=== PATIENT | female | born 1945 | race Caucasian/White ===

== ENCOUNTER 2022-10-01 12:33 | Observation (INO) ==
--- NOTE | 2022-10-01 13:38 | Emergency Department Note ---
Impression & Plan SOB (shortness of breath), CHF (congestive heart failure), Anemia, Thrombocytopenia ED Provider Note NAME: REBECCA ROBERTS AGE: 77 SEX: F : 1945 ARRIVES VIA: Ambulance INFORMANT: [Patient][family, ems, nursing] ED PROVIDER(S): [Saji Richardson MD] CHIEF COMPLAINT: Shortness of breath HISTORY OF PRESENT ILLNESS: The patient is a 77-year-old female who presents with around 2 days of shortness of breath. The patient was staying over at a hotel and noticed the shortness of breath in the chestnut tanner. She noticed some swelling of her face. She felt short of breath with exertion. She does complain of body aching. The patient did go to urgent care today and was felt to be quite short of breath. She was given a DuoNeb and sent to this ER by ambulance. A second DuoNeb was given in route. She feels better since the DuoNeb treatments. The patient did take some Benadryl also in the midmorning today before going to urgent care. She thinks the Benadryl helped maybe a little. The patient has had similar reactions in the past from sleeping in hotels. She thinks she has some sort of allergy. The patient denies any sick contacts. She has an albuterol inhaler at home but she has not used this. She has tried her Advair inhaler though. PMHx/PSHx: See Below SOCIAL HISTORY: See Below. PHYSICAL EXAM: GENERAL: Patient is in no acute distress. HEENT: No acute trauma, normocephalic atraumatic, mucous membranes moist, no nasal congestion. NECK: No stridor, no adenopathy, no meningismus, trachea is midline. LUNGS: No obvious respiratory distress but the breath sounds are diminished bilaterally with some bilateral basilar crackles. Breath sounds equal bilaterally. HEART: Subtle systolic murmur with a occasional extra beat. Normal rate. ABDOMEN: Soft, nontender, bowel sounds positive, no peritonitis. EXTREMITIES: No cyanosis, mild bilateral pedal edema, full range of motion of all the joints without pain or difficulty, no signs for acute trauma. NEUROLOGIC: Oriented x 3, no acute motor or sensory deficits, no focal weakness. SKIN: No rash, no jaundice, no diaphoresis. DIFFERENTIAL DIAGNOSIS: Reactive airway disease, environmental allergy, RSV, influenza, COVID-19, pneumonia, pneumothorax, COPD, CHF, infection, cardiac ischemia, anemia, pulmonary embolism, bronchitis, as well as other pathologies. EMERGENCY DEPARTMENT COURSE/PROCEDURES: Prior/Outside records reviewed: None ECG: Indication was shortness of breath. The ECG shows an AV pacemaker with a [place] beat. The rate is 85. No obvious ST elevation, the QTC is 542. Continuous Cardiac Monitoring: An order was placed for continuous cardiac monitoring. The monitor shows a rate of 71 with an AV pacemaker. MEDICAL DECISION MAKING: There is no leukocytosis, a mild anemia was seen. Platelet count was slightly low at 102. No coagulopathy. Creatinine is slightly high at 1.48, no electrolyte abnormality in need of emergent correction. No concerning liver enzyme elevation. ECG showed an AV pacemaker, no obvious ischemia. Cardiac enzyme testing x1 was slightly elevated. This elevation could be from mismatch given her dyspnea or potentially cardiac injury. BNP was elevated consistent with CHF and fluid overload. Chest x-ray does show some mild CHF. On exam, patient did have crackles consistent with fluid overload. Urinalysis showed contamination, no infection. COVID, influenza and RSV test were negative. The patient received IV Zofran for some nausea that she developed here in the ED. She was given IV Lasix to start her diuresis. I do think the patient deserves a hospital stay. She has a complicated past history. She presents fluid overloaded and was felt to be quite dyspneic at the outpatient center. She required ambulance transport to our hospital. She is from outside of [place] and visiting the area and does not have any ability to follow-up locally. I did speak with the patient and her , I spoke with case management, the on-call hospitalist was consulted. DISPOSITION: Patient's presentation warranted admission. Past Med/Surg History Medical History CAD (coronary artery disease) COPD (chronic obstructive pulmonary disease) Diabetes Heart failure Hyperlipidemia Hypertension Surgical History S/P triple vessel bypass Social History Smoking Status: Never smoker Hx Alcohol Use: Yes Alcohol type: wine Hx Substance Use: No Preferred Language: Swedish Communication Ability: Effective Refrigeration Systems Installer Required: No Beliefs That Will Affect Care: None Current Living Situation: Spouse Current Living Situation Comment: Other Information That Helps Us Care for You: No Feels Safe at Home: Yes Safety Concerns: Feels Safe At This Time Assistive Devices: Glasses, Hearing Aid - Bilateral and Walker Allergies Allergies Allergy/AdvReac Type Severity Reaction Status Date / Time ciprofloxacin [From Cipro] Allergy Unknown Verified 10/01/22 16:43 dextrose 5 % in water Allergy Unknown Verified 10/01/22 16:43 [From Zyvox] doxycycline Allergy Unknown Verified 10/01/22 16:43 linezolid [From Zyvox] Allergy Unknown Verified 10/01/22 16:43 polymyxin B Allergy Unknown Verified 10/01/22 16:43 sulfamethoxazole Allergy Unknown Verified 10/01/22 16:43 [From Bactrim] trimethoprim [From Bactrim] Allergy Unknown Verified 10/01/22 16:43 Home Meds Home Medications Medication Instructions Recorded Confirmed albuterol sulfate 90 mcg/actuation 2 puff inhalation Q4 10/01/22 10/01/22 aerosol inhaler aspirin 81 mg tablet,delayed 81 mg PO DAILY 10/01/22 10/01/22 release carvedilol 3.125 mg tablet 3.125 mg PO BID 10/01/22 10/01/22 fluticasone 500 mcg-salmeterol 50 1 inh inhalation BID 10/01/22 10/01/22 mcg/dose blistr powdr for inhalation (Advair Diskus) fluticasone propionate 50 2 spray intranasal BID 10/01/22 10/01/22 mcg/actuation nasal spray,suspension insulin glargine 100 unit/mL (3 42 unit subcut QAM 10/01/22 10/01/22 mL) subcutaneous pen (Lantus Solostar U-100 Insulin) insulin lispro 100 unit/mL 0 unit subcut TIDM 10/01/22 10/01/22 subcutaneous pen (Humalog KwikPen (U-100) Insulin) metoprolol succinate 25 mg 25 mg PO DAILY 10/01/22 10/01/22 tablet,extended release 24 hr pantoprazole 40 mg tablet,delayed 40 mg PO DAILY 10/01/22 10/01/22 release pregabalin 50 mg capsule 50 mg PO BID 10/01/22 10/01/22 rosuvastatin 40 mg tablet 40 mg PO DAILY 10/01/22 10/01/22 sacubitril 24 mg-valsartan 26 mg 0.25 tab PO BID 10/01/22 10/01/22 tablet (Entresto) Results & Data (ED) Vital Signs Vital Signs - 24 hr 10/01/22 12:21 10/01/22 12:36 10/01/22 12:36 Temperature 36.8 C Temperature Source Oral Pulse Rate 71 Pulse Rhythm Regular Pulse Strength Normal Respiratory Rate 24 Respiratory Effort / Characteristics Non-Labored Respiratory Depth Normal Normal Respiratory Pattern Regular Blood Pressure 173/76 H Blood Pressure Mean 108 Pulse Oximetry 94 93 Oxygen Delivery Method Room Air Room Air Room Air Oxygen Flow Rate 0 Sepsis Recent Fever Within 48 Hours No Sepsis New/Unexplained Change in Mental Status No Sepsis Action Taken by Nursing No Action Required Home Medications Current Medication List: was personally reviewed by me Laboratory Data Attestation: I reviewed the patient's lab results. Result diagrams: 10/01/22 14:08 10/01/22 14:08 Lab Results 10/01/22 10/01/22 10/01/22 Range/Units 13:55 13:58 14:08 WBC 8.18 (4.8-10.8) K/ul RBC 3.80 L (3.93-5.22) M/uL Hgb 11.5 L (12.0-16.0) g/dl Hct 35.7 (34.1-44.9) % MCV 93.9 (80.0-100.0) fL MCH 30.3 (25.0-34.0) pg MCHC 32.2 (32.0-36.0) g/dL RDW Std Deviation 53.1 H (36.4-46.3) fL RDW Coeff of Michael 15.3 H (11.5-14.5) % Plt Count 102 L (130-400) K/uL MPV 11.1 (9.4-12.3) fL Immature Gran % (Auto) 0.2 % Neut % (Auto) 73.5 % Lymph % (Auto) 12.7 % [place] % (Auto) 13.1 % Eos % (Auto) 0.4 % Baso % (Auto) 0.1 % Neut # (Auto) 6.01 (1.4-6.5) K/uL Lymph # (Auto) 1.04 L (1.2-3.4) K/uL [place] # (Auto) 1.07 H (0.24-0.82) K/uL Eos # (Auto) 0.03 (0-0.50) K/uL Baso # (Auto) 0.01 (0-0.2) K/uL Immature Gran # (Auto) 0.02 (0.00-0.02) K/uL PT (9.0-12.0) Seconds INR (0.9-1.1) APTT (21.0-31.0) Seconds PTT Ratio Sodium (136-145) mmol/L Potassium (3.5-5.1) mmol/L Chloride (98-107) mmol/L Carbon Dioxide (21-32) mmol/L Anion Gap (3-11) BUN (6-23) mg/dl Creatinine (0.6-1.2) mg/dl Est Cr Clr Drug Dosing ml/min Est GFR ( Amer) ml/min Est GFR (Non-Af Amer) ml/min BUN/Creatinine Ratio (10-20) Glucose (70-99(Fasting)) mg/dl Calcium (8.5-10.1) mg/dl Magnesium (1.7-2.4) mg/dl Total Bilirubin (0.2-1.0) mg/dl AST (13-39) U/L ALT (7-52) U/L Alkaline Phosphatase (34-104) U/L Troponin I High Sens (0-14) pg/ml B-Natriuretic Peptide (0-100) pg/ml Total Protein (6.0-8.3) gm/dl Albumin (3.4-5.0) gm/dl Globulin (2.5-4.0) gm/dl Albumin/Globulin Ratio (0.9-2) Urine Color Yellow Urine Appearance Clear (Clear) Urine pH 5.5 (4.5-7.5) Ur Specific [place] 1.020 (1.000-1.030) Urine Protein 2+ H (Negative) Urine Glucose (UA) Negative (Negative) Urine Ketones Negative (Negative) Urine Blood Trace H (Negative) Urine Nitrite Negative (Negative) Urine Bilirubin Negative (Negative) Urine Urobilinogen Negative (Negative) Ur Leukocyte Esterase Trace H (Negative) Urine WBC (Auto) 10-30 H (0-5) /hpf Urine RBC (Auto) 0-4 (0-4) /hpf U Hyaline Cast (Auto) 1-5 (0-5) /lpf U Epithel Cells (Auto) 10-20 H (0-5) /lpf Urine Bacteria (Auto) Negative (Negative) SARS-CoV-2 (PCR) NEGATIVE (Negative) Influenza Type A (PCR) Negative (Neg) Influenza Type B (PCR) Negative (Neg) RSV (RT-PCR) Negative (Neg) 10/01/22 10/01/22 10/01/22 Range/Units 14:08 14:08 14:08 WBC (4.8-10.8) K/ul RBC (3.93-5.22) M/uL Hgb (12.0-16.0) g/dl Hct (34.1-44.9) % MCV (80.0-100.0) fL MCH (25.0-34.0) pg MCHC (32.0-36.0) g/dL RDW Std Deviation (36.4-46.3) fL RDW Coeff of Michael (11.5-14.5) % Plt Count (130-400) K/uL MPV (9.4-12.3) fL Immature Gran % (Auto) % Neut % (Auto) % Lymph % (Auto) % [place] % (Auto) % Eos % (Auto) % Baso % (Auto) % Neut # (Auto) (1.4-6.5) K/uL Lymph # (Auto) (1.2-3.4) K/uL [place] # (Auto) (0.24-0.82) K/uL Eos # (Auto) (0-0.50) K/uL Baso # (Auto) (0-0.2) K/uL Immature Gran # (Auto) (0.00-0.02) K/uL PT 11.4 (9.0-12.0) Seconds INR 1.1 (0.9-1.1) APTT 23.7 (21.0-31.0) Seconds PTT Ratio 0.9 Sodium 139 (136-145) mmol/L Potassium 4.3 (3.5-5.1) mmol/L Chloride 105 (98-107) mmol/L Carbon Dioxide 27 (21-32) mmol/L Anion Gap 7 (3-11) BUN 20 (6-23) mg/dl Creatinine 1.48 H (0.6-1.2) mg/dl Est Cr Clr Drug Dosing 43.2 ml/min Est GFR ( Amer) 39.7 ml/min Est GFR (Non-Af Amer) 34.3 ml/min BUN/Creatinine Ratio 13.5 (10-20) Glucose 156 H (70-99(Fasting)) mg/dl Calcium 8.9 (8.5-10.1) mg/dl Magnesium 2.0 (1.7-2.4) mg/dl Total Bilirubin 0.8 (0.2-1.0) mg/dl AST 14 (13-39) U/L ALT 10 (7-52) U/L Alkaline Phosphatase 65 (34-104) U/L Troponin I High Sens 25.3 H (0-14) pg/ml B-Natriuretic Peptide 892 H (0-100) pg/ml Total Protein 7.0 (6.0-8.3) gm/dl Albumin 3.5 (3.4-5.0) gm/dl Globulin 3.5 (2.5-4.0) gm/dl Albumin/Globulin Ratio 1.0 (0.9-2) Urine Color Urine Appearance (Clear) Urine pH (4.5-7.5) Ur Specific [place] (1.000-1.030) Urine Protein (Negative) Urine Glucose (UA) (Negative) Urine Ketones (Negative) Urine Blood (Negative) Urine Nitrite (Negative) Urine Bilirubin (Negative) Urine Urobilinogen (Negative) Ur Leukocyte Esterase (Negative) Urine WBC (Auto) (0-5) /hpf Urine RBC (Auto) (0-4) /hpf U Hyaline Cast (Auto) (0-5) /lpf U Epithel Cells (Auto) (0-5) /lpf Urine Bacteria (Auto) (Negative) SARS-CoV-2 (PCR) (Negative) Influenza Type A (PCR) (Neg) Influenza Type B (PCR) (Neg) RSV (RT-PCR) (Neg) Administered Medications Acetaminophen (Acetaminophen 325 Mg Tab) 650 mg PO Q4H PRN PRN Reason: Pain or Fever Stop: 10/31/22 17:15 Last Admin: 10/01/22 19:06 Dose: 650 mg Documented By: [id number] Enoxaparin Sodium (Enoxaparin Inj 40 Mg/0.4 Ml Syr) 40 mg SQ Q24H KYLAH Stop: 10/31/22 17:29 Last Admin: 10/01/22 18:10 Dose: 40 mg Documented By: RACHEL Insulin Aspart (Insulin Aspart Per Unit) 0 units SC ACHS KYLAH Stop: 10/31/22 17:15 Last Admin: 10/01/22 18:09 Dose: 2 units Documented By: RACHEL Co-signed By: [facility] Discontinued Medications Furosemide (Furosemide 40 Mg/4 Ml Vial) 40 mg IV ONE ONE Stop: 10/01/22 14:52 Last Admin: 10/01/22 15:00 Dose: 40 mg Documented By: MATTHEW Ondansetron HCl (Ondansetron Inj 2 Mg/Ml 2 Ml Vial) 4 mg IV NOW STA Stop: 10/01/22 14:05 Last Admin: 10/01/22 14:07 Dose: 4 mg Documented By: MATTHEW Imaging Data Radiologist's Impression: Chest X-Ray 10/01/22 13:27 SINGLE VIEW CHEST CLINICAL HISTORY: Dyspnea FINDINGS: An AP, portable, upright chest radiograph is obtained. No prior studies are available for comparison at the time of dictation. The examination is degraded by portable technique, apical lordotic positioning, and patient rotation. The patient is status post midline sternotomy. A cardiac AICD is in place and partially obscures left apex. The heart is enlarged. There is prominence of the pulmonary vasculature. There is elevation the right hemidiaphragm and bibasilar atelectasis. Suspect trace pleural effusions. No pneumothorax is seen. The skeletal structures are osteopenic. The bony thorax is grossly intact. IMPRESSION: 1. Cardiomegaly and AICD. There is prominence of pulmonary vasculature. Correlate clinically for evidence of mild congestive failure. 2. Suspect small pleural effusions. ACT 112: Negative or not required by law. Electronically signed by: Saji Bynum M.D. 10/01/2022 1:50 PM Discharge Plan Visit Data Chief Complaint: Shortness of Breath/Dyspnea Stated Complaint: SOB ED Provider: Saji Richardson Discharge Problem: SOB (shortness of breath), CHF (congestive heart failure), Anemia, Thrombocytopenia Patient Disposition: Admitted As Inpatient Condition: Fair Discharge Instructions Interventions: ED Discharge Assessment Last Done: 10/01/22 16:17
--- NOTE | 2022-10-01 13:51 | XRay Report ---
SINGLE VIEW CHEST CLINICAL HISTORY: Dyspnea FINDINGS: An AP, portable, upright chest radiograph is obtained. No prior studies are available for c omparison at the time of dictation. The examination is degraded by portable technique, apical lordoti c positioning, and patient rotation. The patient is status post midline sternotomy. A cardiac AICD i s in place and partially obscures left apex. The heart is enlarged. There is prominence of the pulmon shefali vasculature. There is elevation the right hemidiaphragm and bibasilar atelectasis. Suspect trace pleural effusions. No pneumothorax is seen. The skeletal structures are osteopenic. The bony thorax i s grossly intact. IMPRESSION: 1. Cardiomegaly and AICD. There is prominence of pulmonary vasculature. Correlate clinically for evid ence of mild congestive failure. 2. Suspect small pleural effusions. ACT 112: Negative or not required by law. Electronically signed by: Saji Bynum M.D. 10/01/2022 1:50 PM
[2022-10-01] MEDS ORDERED: ONDANSETRON INJ 2 MG/ML 2 ML VIAL IV STA (14:04)
[2022-10-01 14:12] LABS: Appearance Urine Clear (Clear); Bacteria Urine Automated Negative (Negative); Bilirubin Urine Negative (Negative); Blood Urine Trace (Negative); Color Urine Yellow; Glucose Urine UA Negative (Negative); Ketones Urine Negative (Negative); Leukocyte Esterase Urine Trace (Negative); Nitrite Urine Negative (Negative); Protein Urine 2+ (Negative); RBC Urine Automated 0-4 /hpf (0-4); Urobilinogen Urine Negative (Negative); pH Urine 5.5 (4.5-7.5)
[2022-10-01 14:17] LABS: Basophils # (auto) 0.01 K/uL (0-0.2); Basophils % (auto) 0.1 %; Eosinophils # (auto) 0.03 K/uL (0-0.50); Eosinophils % (auto) 0.4 %; Hematocrit (blood only) 35.7 % (34.1-44.9); Hemoglobin 11.5 g/dl (12.0-16.0); Immature Granulocytes # (auto) 0.02 K/uL (0.00-0.02); Immature Granulocytes % (auto) 0.2 %; Lymphocytes # (auto) 1.04 K/uL (1.2-3.4); Lymphocytes % (auto) 12.7 %; Mean Corpuscular Hemoglobin 30.3 pg (25.0-34.0); Mean Corpuscular Hgb Conc 32.2 g/dL (32.0-36.0); Mean Corpuscular Volume 93.9 fL (80.0-100.0); Mean Platelet Volume 11.1 fL (9.4-12.3); Monocytes # (auto) 1.07 K/uL (0.24-0.82); Monocytes % (auto) 13.1 %; Neutrophils # (auto) 6.01 K/uL (1.4-6.5); Neutrophils % (auto) 73.5 %; Platelet Count 102 K/uL (130-400); RDW Coefficient of Variation 15.3 % (11.5-14.5); RDW Standard Deviation 53.1 fL (36.4-46.3); White Blood Count 8.18 K/ul (4.8-10.8)
[2022-10-01 14:31] LABS: INR 1.1 (0.9-1.1); Partial Thromboplastin Ratio 0.9; Partial Thromboplastin Time 23.7 Seconds (21.0-31.0); Prothrombin Time 11.4 Seconds (9.0-12.0)
[2022-10-01 14:43] LABS: Albumin Level 3.5 gm/dl (3.4-5.0); BUN Creatinine Ratio 13.5 (10-20); Bilirubin,Total 0.8 mg/dl (0.2-1.0); Calcium 8.9 mg/dl (8.5-10.1); Creatinine Clr Calc Pharmacy 43.2 ml/min; Est GFR (African American) 39.7 ml/min; Est GFR (Non-African American) 34.3 ml/min; Globulin 3.5 gm/dl (2.5-4.0); Potassium 4.3 mmol/L (3.5-5.1)
[2022-10-01 14:45] LABS: Influenza A virus by PCR Negative (Neg); Influenza B virus by PCR Negative (Neg); RSV by PCR Negative (Neg); SARS CoV2 RNA(COVID-19) Ceph NEGATIVE (Negative)
[2022-10-01 14:46] LABS: Troponin I High Sensitivity 25.3 pg/ml (0-14)
[2022-10-01] MEDS ORDERED: FUROSEMIDE 40 MG/4 ML VIAL IV ONE (14:51)
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
[2022-10-01] MEDS ORDERED: DEXTROSE 50% 50 ML SYRINGE IV PRN (17:16)
[2022-10-01] MEDS ORDERED: ALUMINUM/MAGNESIUM SUSP 30 ML UDC PO PRN (17:16)
[2022-10-01] MEDS ORDERED: GLUCAGON FOR INJ 1 MG VIAL SQ PRN (17:16)
[2022-10-01] MEDS ORDERED: GLUCOSE 10 TAB/TUBE PO PRN (17:16)
[2022-10-01] MEDS ORDERED: CARBOHYDRATES FOR HYPOGLYCEMIA PO PRN (17:16)
[2022-10-01] MEDS ORDERED: POLYETHYLENE (MIRALAX) 17 GM PACK PO PRN (17:16)
[2022-10-01] MEDS ORDERED: GLUCOSE 40% GEL 15 GM TUBE PO PRN (17:16)
[2022-10-01] MEDS: INSULIN ASPART PER UNIT SC SCH ×2 (18:09→20:13)
[2022-10-01] MEDS: ENOXAPARIN INJ 40 MG/0.4 ML SYR SQ SCH (18:10)
[2022-10-01] MEDS: ACETAMINOPHEN 325 MG TAB PO PRN (19:06)
--- NOTE | 2022-10-01 19:08 | Electrocardiogram Report ---
Test Reason : Blood Pressure : / mmHG Vent. Rate : 085 BPM Atrial Rate : 085 BPM P-R Int : 170 ms QRS Dur : 170 ms QT Int : 456 ms P-R-T Axes : 000 108 097 degrees QTc Int : 542 ms AV dual-paced rhythm with occasional Premature ventricular complexes Abnormal ECG No previous ECGs available Confirmed by Ambrocio Wyatt ([id number]) on 10/01/2022 7:07:46 PM Referred By: ED Confirmed By:Praneeth Wyatt
[2022-10-01] MEDS ORDERED: ALBUTEROL HFA 8 GM INHALER INH SCH (20:00)
[2022-10-01] MEDS: PREGABALIN 50 MG CAP PO SCH (20:10)
[2022-10-01] MEDS: VALSARTAN/SACUBITRIL 26/24MG TAB PO SCH (20:10)
[2022-10-01] MEDS: FLUTICASONE PROPIONATE NA SPR 16 GM BTL SCH (20:11)
[2022-10-01] MEDS: carvediloL 3.125 MG TAB PO SCH (20:13)
[2022-10-01] MEDS ORDERED: ALBUTEROL HFA 8 GM INHALER INH PRN (21:30)
[2022-10-02] MEDS: ACETAMINOPHEN 325 MG TAB PO PRN ×3 (03:14→21:31)
[2022-10-02] MEDS ORDERED: HYDROmorphone INJ 0.5 MG/0.5 ML SYR IV STA (03:30)
[2022-10-02 07:13] LABS: Estimated Average Glucose 171 mg/dl; Hemoglobin A1C 7.6 % (4.5-5.6)
[2022-10-02] MEDS ORDERED: FUROSEMIDE INJ 20 MG/2 ML VIAL IV SCH (09:00)
[2022-10-02] MEDS ORDERED: ROSUVASTATIN CALCIUM 20 MG TAB PO SCH (09:00)
[2022-10-02] MEDS ORDERED: METOPROLOL SUCC 25MG EXT REL TAB PO SCH (09:00)
[2022-10-02] MEDS: PANTOprazole 40 MG TAB PO SCH (09:32)
[2022-10-02] MEDS: FLUTICASONE PROPIONATE NA SPR 16 GM BTL SCH ×2 (09:32→21:31)
[2022-10-02] MEDS: ASPIRIN 81 MG ECTAB PO SCH (09:32)
[2022-10-02] MEDS: carvediloL 3.125 MG TAB PO SCH ×2 (09:32→21:31)
[2022-10-02] MEDS: PREGABALIN 50 MG CAP PO SCH ×2 (09:32→21:31)
[2022-10-02] MEDS: VALSARTAN/SACUBITRIL 26/24MG TAB PO SCH (09:33)
[2022-10-02] MEDS: LANTUS PER UNIT CHARGE SQ SCH (09:36)
[2022-10-02] MEDS: INSULIN ASPART PER UNIT SC SCH ×4 (09:39→21:24)
[2022-10-02 10:26] LABS: Basophils # (auto) 0.02 K/uL (0-0.2); Basophils % (auto) 0.3 %; Eosinophils # (auto) 0.11 K/uL (0-0.50); Eosinophils % (auto) 1.5 %; Hematocrit (blood only) 32.9 % (34.1-44.9); Hemoglobin 10.2 g/dl (12.0-16.0); Immature Granulocytes # (auto) 0.02 K/uL (0.00-0.02); Immature Granulocytes % (auto) 0.3 %; Lymphocytes % (auto) 17.3 %; Mean Corpuscular Hemoglobin 29.4 pg (25.0-34.0); Mean Corpuscular Volume 94.8 fL (80.0-100.0); Mean Platelet Volume 11.3 fL (9.4-12.3); Monocytes # (auto) 1.39 K/uL (0.24-0.82); Monocytes % (auto) 18.5 %; Neutrophils # (auto) 4.68 K/uL (1.4-6.5); Neutrophils % (auto) 62.1 %; Platelet Count 114 K/uL (130-400); RDW Coefficient of Variation 15.5 % (11.5-14.5); RDW Standard Deviation 53.8 fL (36.4-46.3); Red Blood Count 3.47 M/uL (3.93-5.22); White Blood Count 7.52 K/ul (4.8-10.8)
[2022-10-02 10:45] LABS: BUN Creatinine Ratio 13.9 (10-20); C Reactive Protein 12.69 mg/dl (0-0.5); Calcium 8.4 mg/dl (8.5-10.1); Creatinine Clr Calc Pharmacy 31.3 ml/min; Est GFR (African American) 27.4 ml/min; Est GFR (Non-African American) 23.7 ml/min; Potassium 4.2 mmol/L (3.5-5.1)
[2022-10-02] MEDS: ONDANSETRON INJ 2 MG/ML 2 ML VIAL IV PRN (11:19)
--- NOTE | 2022-10-02 11:36 | XCELERA ---
[id number]
[2022-10-02] MEDS: FLUTICASONE/VILANTEROL 100/25MCG 14 PUFFS/INHALER INH SCH (12:45)
[2022-10-02] MEDS: cefTRIAXone SODIUM 2,000 MG in DEXTROSE 5% 50 ML IV SCH (12:45)
--- NOTE | 2022-10-02 12:47 | Electrocardiogram Report ---
Test Reason : Blood Pressure : / mmHG Vent. Rate : 062 BPM Atrial Rate : 061 BPM P-R Int : 176 ms QRS Dur : 166 ms QT Int : 526 ms P-R-T Axes : 056 100 094 degrees QTc Int : 533 ms AV dual-paced rhythm Abnormal ECG When compared with ECG of 01-OCT-2022 12:38, Premature ventricular complexes are no longer Present Vent. rate has decreased BY 23 BPM Confirmed by Iraj Louis ([id number]) on 10/02/2022 12:47:14 PM Referred By: REFERRED SELF Confirmed By:Iraj Louis
--- NOTE | 2022-10-02 13:14 | Hospitalist Progress Note ---
Date of Service October 02, 2022 Assessment & Plan (1) GELA (acute kidney injury): Plan: Baseline Cr and CrCl are unknown. Presented with Cr 1.48. Following 1 dose of IV lasix yesterday it is now 2. HOLD FURTHER Lasix and Entresto. Repeat BMP am. If Creatinine worsens consider CT or renal u/s to r/o obstruction. (2) CAD (coronary artery disease): Plan: History of triple bypass surgery 1.5 years ago w/ [facility] and AICD placement after that (due to Vtach event??). No ischemic symptoms. Mild trop elevation likely myocardial demand ischemia. Cont BB (coreg; stop metoprolol). Cont statin. (3) Diabetes: Plan: Hba1c 7.6% cont lantus cont novolog (4) Hypertension: Plan: hold diuretics and Entresto due to #1 Cont coreg. (5) Hyperlipidemia: Plan: Continue statin. (6) Cellulitis and abscess of right leg: Plan: blood cultures obtained, and started on rocephin + daptomycin for such. her illness that she developed on 09/30 could be 2nd to the cellulitis or a respiratory illness - or both. follow cultures and serial exams. wound care consult for the RLE barrett ulcer. (7) Wheezing: Plan: 2nd to COPD? 2nd to respiratory viral process? 2nd to pulm edema? suspect infectious process thus obtain [employer] resp panel today. repeat cxr - r/o ongoing edema causing the wheezing (but clinically does not appear volume overloaded). patient is very short of breath with exertion - may need CT chest if cxr is not helpful/revealing. (8) COPD (chronic obstructive pulmonary disease): Plan: cont home inhalers (9) Chronic systolic CHF (congestive heart failure): Plan: previous EF <30%?? then improved to 45% per . now 50-55% on echo today. Creatinine worse with diuresis - hold further lasix. cont coreg. (10) ICD (implantable cardioverter-defibrillator) in place: Plan DVT proph - lovenox Nausea - 2nd to cellulitis? respiratory illness? other? treat symptoms, check KUB x-rays updated at bedside Admission and Anticipated Discharge Date Admission Date: October 01, 2022 Subjective patient reports waking up on 09/30/22 in the hotel in which she & her are staying in (they were visiting family for the holidays - they reside in [place]) with diffuse myalgias, fatigue, chills, and feeling poorly appetite since then has been poor attributes symptoms to "allergic reaction" to the pillows felt that her face was "swollen" did not seek medical attention for the ?allergic rxn since 09/30 has had dyspnea with minimal activity reports that she saw her boat wrapper not too long ago in [place] and was told her EF on echo was "45" she has continued with nausea since admission appetite poor also c/o sores on legs worse on right barrett tele overnight stable Review of Systems Review of Systems: gen - fever overnight cv - no cp pulm - minimal cough despite the dyspnea GI - despite nausea no abd pain - no dysuria or foul-smelling urine Physical Exam Physical Exam: gen - obese, NAD neck - no JVD mouth - MMM heart - RRR, s1 s2 lungs - poor airation, faint end-exp wheezes, no rales abd - soft NT ND BS+ ext - 1+ edema b/l, pulses 2+ b/l skin - ?early cellulitis of right barrett with large irregularly shaped ulceration (shallow) on the right barrett; minimal weeping serous fluid; scattered abrasions on both shins - a little worse on right psych - a/o x 3 Results & Data Results & [facility] ([facility]) Vital Signs (Past 12 Hours) Vital Signs Temp Pulse Resp BP BP Pulse Ox O2 Del Method 10/02/22 12:00 36.6 C 60 18 107/44 L 94 Nasal Cannula 10/02/22 08:00 36.7 C 61 20 103/45 L 96 Nasal Cannula 10/02/22 03:16 37.4 C 70 18 121/66 95 Nasal Cannula 10/02/22 02:39 37.0 C 67 18 104/55 L 92 Nasal Cannula O2 Flow Rate 10/02/22 12:00 2 10/02/22 08:00 2 10/02/22 03:16 2 10/02/22 02:39 2 Laboratory Results Laboratory Results - last 24 hr 10/01/22 10/01/22 10/01/22 13:55 13:58 14:08 WBC 8.18 RBC 3.80 L Hgb 11.5 L Hct 35.7 MCV 93.9 MCH 30.3 MCHC 32.2 RDW Std Deviation 53.1 H RDW Coeff of Michael 15.3 H Plt Count 102 L MPV 11.1 Immature Gran % (Auto) 0.2 Neut % (Auto) 73.5 Lymph % (Auto) 12.7 [place] % (Auto) 13.1 Eos % (Auto) 0.4 Baso % (Auto) 0.1 Neut # (Auto) 6.01 Lymph # (Auto) 1.04 L [place] # (Auto) 1.07 H Eos # (Auto) 0.03 Baso # (Auto) 0.01 Immature Gran # (Auto) 0.02 PT INR APTT PTT Ratio Sodium Potassium Chloride Carbon Dioxide Anion Gap BUN Creatinine Est Cr Clr Drug Dosing Est GFR ( Amer) Est GFR (Non-Af Amer) BUN/Creatinine Ratio Glucose POC Glucose Estimat Average Glucose Hemoglobin A1c Calcium Magnesium Total Bilirubin AST ALT Alkaline Phosphatase Troponin I High Sens C-Reactive Protein B-Natriuretic Peptide Total Protein Albumin Globulin Albumin/Globulin Ratio Procalcitonin Urine Color Yellow Urine Appearance Clear Urine pH 5.5 Ur Specific [place] 1.020 Urine Protein 2+ H Urine Glucose (UA) Negative Urine Ketones Negative Urine Blood Trace H Urine Nitrite Negative Urine Bilirubin Negative Urine Urobilinogen Negative Ur Leukocyte Esterase Trace H Urine WBC (Auto) 10-30 H Urine RBC (Auto) 0-4 U Hyaline Cast (Auto) 1-5 U Epithel Cells (Auto) 10-20 H Urine Bacteria (Auto) Negative SARS-CoV-2 (PCR) NEGATIVE Hepatitis C Ab (EIA) Hep C Ab Signal/Cutoff Influenza Type A (PCR) Negative Influenza Type B (PCR) Negative RSV (RT-PCR) Negative 10/01/22 10/01/22 10/01/22 14:08 14:08 14:08 WBC RBC Hgb Hct MCV MCH MCHC RDW Std Deviation RDW Coeff of Michael Plt Count MPV Immature Gran % (Auto) Neut % (Auto) Lymph % (Auto) [place] % (Auto) Eos % (Auto) Baso % (Auto) Neut # (Auto) Lymph # (Auto) [place] # (Auto) Eos # (Auto) Baso # (Auto) Immature Gran # (Auto) PT 11.4 INR 1.1 APTT 23.7 PTT Ratio 0.9 Sodium 139 Potassium 4.3 Chloride 105 Carbon Dioxide 27 Anion Gap 7 BUN 20 Creatinine 1.48 H Est Cr Clr Drug Dosing 43.2 Est GFR ( Amer) 39.7 Est GFR (Non-Af Amer) 34.3 BUN/Creatinine Ratio 13.5 Glucose 156 H POC Glucose Estimat Average Glucose Hemoglobin A1c Calcium 8.9 Magnesium 2.0 Total Bilirubin 0.8 AST 14 ALT 10 Alkaline Phosphatase 65 Troponin I High Sens 25.3 H C-Reactive Protein B-Natriuretic Peptide 892 H Total Protein 7.0 Albumin 3.5 Globulin 3.5 Albumin/Globulin Ratio 1.0 Procalcitonin Urine Color Urine Appearance Urine pH Ur Specific [place] Urine Protein Urine Glucose (UA) Urine Ketones Urine Blood Urine Nitrite Urine Bilirubin Urine Urobilinogen Ur Leukocyte Esterase Urine WBC (Auto) Urine RBC (Auto) U Hyaline Cast (Auto) U Epithel Cells (Auto) Urine Bacteria (Auto) SARS-CoV-2 (PCR) Hepatitis C Ab (EIA) Hep C Ab Signal/Cutoff Influenza Type A (PCR) Influenza Type B (PCR) RSV (RT-PCR) 10/01/22 10/01/22 10/02/22 17:00 20:02 04:04 WBC RBC Hgb Hct MCV MCH MCHC RDW Std Deviation RDW Coeff of Michael Plt Count MPV Immature Gran % (Auto) Neut % (Auto) Lymph % (Auto) [place] % (Auto) Eos % (Auto) Baso % (Auto) Neut # (Auto) Lymph # (Auto) [place] # (Auto) Eos # (Auto) Baso # (Auto) Immature Gran # (Auto) PT INR APTT PTT Ratio Sodium Potassium Chloride Carbon Dioxide Anion Gap BUN Creatinine Est Cr Clr Drug Dosing Est GFR ( Amer) Est GFR (Non-Af Amer) BUN/Creatinine Ratio Glucose POC Glucose 185 H 205 H Estimat Average Glucose 171 Hemoglobin A1c 7.6 H Calcium Magnesium Total Bilirubin AST ALT Alkaline Phosphatase Troponin I High Sens C-Reactive Protein B-Natriuretic Peptide Total Protein Albumin Globulin Albumin/Globulin Ratio Procalcitonin Urine Color Urine Appearance Urine pH Ur Specific [place] Urine Protein Urine Glucose (UA) Urine Ketones Urine Blood Urine Nitrite Urine Bilirubin Urine Urobilinogen Ur Leukocyte Esterase Urine WBC (Auto) Urine RBC (Auto) U Hyaline Cast (Auto) U Epithel Cells (Auto) Urine Bacteria (Auto) SARS-CoV-2 (PCR) Hepatitis C Ab (EIA) Hep C Ab Signal/Cutoff Influenza Type A (PCR) Influenza Type B (PCR) RSV (RT-PCR) 10/02/22 10/02/22 10/02/22 04:04 04:04 07:40 WBC RBC Hgb Hct MCV MCH MCHC RDW Std Deviation RDW Coeff of Michael Plt Count MPV Immature Gran % (Auto) Neut % (Auto) Lymph % (Auto) [place] % (Auto) Eos % (Auto) Baso % (Auto) Neut # (Auto) Lymph # (Auto) [place] # (Auto) Eos # (Auto) Baso # (Auto) Immature Gran # (Auto) PT INR APTT PTT Ratio Sodium Potassium Chloride Carbon Dioxide Anion Gap BUN Creatinine Est Cr Clr Drug Dosing Est GFR ( Amer) Est GFR (Non-Af Amer) BUN/Creatinine Ratio Glucose POC Glucose 144 H Estimat Average Glucose Hemoglobin A1c Calcium Magnesium Total Bilirubin AST ALT Alkaline Phosphatase Troponin I High Sens 46.9 H D C-Reactive Protein B-Natriuretic Peptide Total Protein Albumin Globulin Albumin/Globulin Ratio Procalcitonin Urine Color Urine Appearance Urine pH Ur Specific [place] Urine Protein Urine Glucose (UA) Urine Ketones Urine Blood Urine Nitrite Urine Bilirubin Urine Urobilinogen Ur Leukocyte Esterase Urine WBC (Auto) Urine RBC (Auto) U Hyaline Cast (Auto) U Epithel Cells (Auto) Urine Bacteria (Auto) SARS-CoV-2 (PCR) Hepatitis C Ab (EIA) Pending Hep C Ab Signal/Cutoff Pending Influenza Type A (PCR) Influenza Type B (PCR) RSV (RT-PCR) 10/02/22 10/02/22 10/02/22 09:48 09:48 09:48 WBC 7.52 RBC 3.47 L Hgb 10.2 L Hct 32.9 L MCV 94.8 MCH 29.4 MCHC 31.0 L RDW Std Deviation 53.8 H RDW Coeff of Michael 15.5 H Plt Count 114 L MPV 11.3 Immature Gran % (Auto) 0.3 Neut % (Auto) 62.1 Lymph % (Auto) 17.3 [place] % (Auto) 18.5 Eos % (Auto) 1.5 Baso % (Auto) 0.3 Neut # (Auto) 4.68 Lymph # (Auto) 1.30 [place] # (Auto) 1.39 H Eos # (Auto) 0.11 Baso # (Auto) 0.02 Immature Gran # (Auto) 0.02 PT INR APTT PTT Ratio Sodium 138 Potassium 4.2 Chloride 104 Carbon Dioxide 28 Anion Gap 6 BUN 28 H Creatinine 2.01 H D Est Cr Clr Drug Dosing 31.3 Est GFR ( Amer) 27.4 Est GFR (Non-Af Amer) 23.7 BUN/Creatinine Ratio 13.9 Glucose 200 H POC Glucose Estimat Average Glucose Hemoglobin A1c Calcium 8.4 L Magnesium 2.0 Total Bilirubin AST ALT Alkaline Phosphatase Troponin I High Sens 34.0 H D C-Reactive Protein 12.69 H B-Natriuretic Peptide Total Protein Albumin Globulin Albumin/Globulin Ratio Procalcitonin 0.61 H Urine Color Urine Appearance Urine pH Ur Specific [place] Urine Protein Urine Glucose (UA) Urine Ketones Urine Blood Urine Nitrite Urine Bilirubin Urine Urobilinogen Ur Leukocyte Esterase Urine WBC (Auto) Urine RBC (Auto) U Hyaline Cast (Auto) U Epithel Cells (Auto) Urine Bacteria (Auto) SARS-CoV-2 (PCR) Hepatitis C Ab (EIA) Hep C Ab Signal/Cutoff Influenza Type A (PCR) Influenza Type B (PCR) RSV (RT-PCR) 10/02/22 12:03 WBC RBC Hgb Hct MCV MCH MCHC RDW Std Deviation RDW Coeff of Michael Plt Count MPV Immature Gran % (Auto) Neut % (Auto) Lymph % (Auto) [place] % (Auto) Eos % (Auto) Baso % (Auto) Neut # (Auto) Lymph # (Auto) [place] # (Auto) Eos # (Auto) Baso # (Auto) Immature Gran # (Auto) PT INR APTT PTT Ratio Sodium Potassium Chloride Carbon Dioxide Anion Gap BUN Creatinine Est Cr Clr Drug Dosing Est GFR ( Amer) Est GFR (Non-Af Amer) BUN/Creatinine Ratio Glucose POC Glucose 188 H Estimat Average Glucose Hemoglobin A1c Calcium Magnesium Total Bilirubin AST ALT Alkaline Phosphatase Troponin I High Sens C-Reactive Protein B-Natriuretic Peptide Total Protein Albumin Globulin Albumin/Globulin Ratio Procalcitonin Urine Color Urine Appearance Urine pH Ur Specific [place] Urine Protein Urine Glucose (UA) Urine Ketones Urine Blood Urine Nitrite Urine Bilirubin Urine Urobilinogen Ur Leukocyte Esterase Urine WBC (Auto) Urine RBC (Auto) U Hyaline Cast (Auto) U Epithel Cells (Auto) Urine Bacteria (Auto) SARS-CoV-2 (PCR) Hepatitis C Ab (EIA) Hep C Ab Signal/Cutoff Influenza Type A (PCR) Influenza Type B (PCR) RSV (RT-PCR) PG Care Time/CCT Total # of Minutes Spent Total Time Spent with Patient: Total time spent is greater than 50% in coordination of care (as documented) at patient's floor/unit and/or counseling patient: Coding Level of Care Code 22896 SUB INP/OBS CARE 3/50MIN Diagnoses GELA (acute kidney injury) N17.9 CAD (coronary artery disease) I25.10 Diabetes E11.9 Hypertension I10 Hyperlipidemia E78.5 Cellulitis and abscess of right leg L03.115; L02.415 Wheezing R06.2 COPD (chronic obstructive pulmonary disease) J44.9 Chronic systolic CHF (congestive heart failure) I50.22 ICD (implantable cardioverter-defibrillator) in place Z95.810
[2022-10-02] MEDS: DAPTOmycin 350 MG in SYRINGE 0 ML IV SCH (13:55)
--- NOTE | 2022-10-02 15:10 | XRay Report ---
KUB HISTORY: Acute nausea with wheezing nausea COMPARISON: Chest radiographs of same day FINDINGS: Cardiomegaly with partially imaged sternotomy wires and pacer/AICD leads. Layering pleural effusions with bibasilar opacities. Nonobstructive bowel gas pattern with moderate colonic fecal rete ntion. Subcentimeter pelvic basin calcifications are suggestive of phleboliths. Obscuration of the re nal shadows. No renal calculi. No ureteral calculi. No pneumoperitoneum or pneumatosis. Degenerative changes of the spine, pelvis and right hip. Left hip total joint arthroplasty. No fracture. IMPRESSION: 1. Nonobstructive bowel gas pattern. 2. Moderate colonic fecal retention. ACT 112: Negative or not required by law. The above report was generated using voice recognition software. It may contain grammatical, syntax o r spelling errors. Electronically signed by: Sean Olivier M.D. 10/02/2022 3:09 PM
--- NOTE | 2022-10-02 15:43 | XRay Report ---
XR chest 2V PA/lateral CLINICAL HISTORY: b/l rales with wheeze; pneumonia? other? COMPARISON STUDY: Chest radiograph October 01, 2022. FINDINGS: Median sternotomy wires. Left subclavian biventricular pacer/AICD is in place. Elevation of the right hemidiaphragm is unchanged. There are small bilateral pleural effusions. Cardiomegaly is a gain noted. There is no pneumothorax. No consolidation is identified to suggest pneumonia. Linear bib asilar opacities favor atelectasis. There is no evidence for overt pulmonary edema. IMPRESSION: 1. Cardiomegaly. No evidence for overt pulmonary edema. 2. No change in small bilateral pleural effusions. 3. Bibasilar opacities which favor atelectasis over an infectious process. ACT 112: Negative or not required by law. Electronically signed by: Gibson Watt M.D. 10/02/2022 3:42 PM
[2022-10-02] MEDS: ENOXAPARIN INJ 40 MG/0.4 ML SYR SQ SCH (17:57)
[2022-10-02 19:46] LABS: Adenovirus PCR Not Detected (NotDetected); Bordetella parapertussis PCR Not Detected (NotDetected); Bordetella pertussis PCR Not Detected (NotDetected); Chlamydia pneumoniae PCR Not Detected (NotDetected); Coronavirus 229E PCR Not Detected (NotDetected); Coronavirus CoV-2 (COVID19)PCR Not Detected (NotDetected); Coronavirus HKU1 PCR Not Detected (NotDetected); Coronavirus NL63 PCR Not Detected (NotDetected); Coronavirus OC43PCR Not Detected (NotDetected); Human Metapneumovirus PCR Not Detected (NotDetected); Influenza A PCR Not Detected (NotDetected); Influenza B PCR Not Detected (NotDetected); Mycoplasma pneumoniae PCR Not Detected (NotDetected); Parainfluenza Virus 1 PCR Not Detected (NotDetected); Parainfluenza Virus 2 PCR Not Detected (NotDetected); Parainfluenza Virus 3 PCR Not Detected (NotDetected); Parainfluenza Virus 4 PCR Not Detected (NotDetected); Respiratory Syncytial VirusPCR Not Detected (NotDetected); Rhinovirus/Enterovirus PCR Not Detected (NotDetected)
[2022-10-03] MEDS: ACETAMINOPHEN 325 MG TAB PO PRN ×2 (07:57→22:20)
[2022-10-03] MEDS: PREGABALIN 50 MG CAP PO SCH ×2 (07:57→22:21)
[2022-10-03] MEDS: carvediloL 3.125 MG TAB PO SCH ×2 (07:58→22:13)
[2022-10-03] MEDS: PANTOprazole 40 MG TAB PO SCH (07:58)
[2022-10-03] MEDS: FLUTICASONE/VILANTEROL 100/25MCG 14 PUFFS/INHALER INH SCH (07:59)
[2022-10-03] MEDS: ASPIRIN 81 MG ECTAB PO SCH (07:59)
[2022-10-03] MEDS: FLUTICASONE PROPIONATE NA SPR 16 GM BTL SCH ×2 (07:59→22:14)
[2022-10-03] MEDS: INSULIN ASPART PER UNIT SC SCH ×4 (08:05→22:21)
[2022-10-03] MEDS: LANTUS PER UNIT CHARGE SQ SCH (08:05)
[2022-10-03 08:43] LABS: Basophils # (auto) 0.03 K/uL (0-0.2); Basophils % (auto) 0.6 %; Eosinophils # (auto) 0.19 K/uL (0-0.50); Eosinophils % (auto) 3.7 %; Hematocrit (blood only) 33.9 % (34.1-44.9); Hemoglobin 10.5 g/dl (12.0-16.0); Immature Granulocytes # (auto) 0.01 K/uL (0.00-0.02); Immature Granulocytes % (auto) 0.2 %; Lymphocytes # (auto) 0.98 K/uL (1.2-3.4); Lymphocytes % (auto) 19.3 %; Mean Corpuscular Hemoglobin 29.1 pg (25.0-34.0); Mean Corpuscular Volume 93.9 fL (80.0-100.0); Mean Platelet Volume 11.5 fL (9.4-12.3); Monocytes # (auto) 1.01 K/uL (0.24-0.82); Monocytes % (auto) 19.9 %; Neutrophils # (auto) 2.85 K/uL (1.4-6.5); Neutrophils % (auto) 56.3 %; Platelet Count 112 K/uL (130-400); RDW Standard Deviation 52.3 fL (36.4-46.3); Red Blood Count 3.61 M/uL (3.93-5.22); White Blood Count 5.07 K/ul (4.8-10.8)
[2022-10-03 09:14] LABS: Calcium 8.4 mg/dl (8.5-10.1); Creatinine Clr Calc Pharmacy 31.5 ml/min; Est GFR (African American) 27.6 ml/min; Est GFR (Non-African American) 23.8 ml/min; Potassium 4.3 mmol/L (3.5-5.1)
[2022-10-03] MEDS: cefTRIAXone SODIUM 2,000 MG in DEXTROSE 5% 50 ML IV SCH (09:44)
[2022-10-03] MEDS: ONDANSETRON INJ 2 MG/ML 2 ML VIAL IV PRN (09:48)
[2022-10-03] MEDS ORDERED: bisacodyL 10 MG SUPP PR STA (10:00)
[2022-10-03] MEDS ORDERED: SOD PHOSPHATE/SOD BIPHOSPHATE ENEMA 132 ML BTL PR PRN (10:00)
[2022-10-03] MEDS: DAPTOmycin 350 MG in SYRINGE 0 ML IV SCH (13:06)
--- NOTE | 2022-10-03 14:00 | Hospitalist Progress Note ---
Date of Service October 03, 2022 Assessment & Plan (1) GELA (acute kidney injury): Plan: Pt' was able to log in to their PCP's portal back home in [place]. Pt's creatinine was 1.4 in early August 2022. She has been as high as 1.9 in the past, but mostly 1.7 or less. Presented with Cr 1.48. Cr yesterday and today remain at 2. She is nonoliguric. Plan to perform CT a/p without contrast to r/o obstruction, stones, etc. (2) CAD (coronary artery disease): Plan: History of triple bypass surgery 1.5 years ago w/ [facility] and AICD placement after that (due to Vtach event??). No ischemic symptoms. Mild trop elevation likely myocardial demand ischemia. Cont BB (coreg; stopped metoprolol). Cont statin. (3) Diabetes: Plan: Hba1c 7.6% cont lantus cont novolog (4) Hypertension: Plan: hold diuretics and Entresto due to #1 Cont coreg. if Cr is better tomorrow then consider adding back Entresto. (5) Hyperlipidemia: Plan: Continue statin. (6) Cellulitis and abscess of right leg: Plan: IMPROVED cont rocephin + daptomycin 1 more day and if ongoing improvement change to PO abx tomorrow wound care consult for the RLE barrett ulcer appreciated. (7) Wheezing: Plan: 2nd to pulm edema vs respiratory illness. either way it is improved. most recent cxr without infiltrates. BioFire negative. o2 sats wnl and dyspnea improved. monitor. (8) COPD (chronic obstructive pulmonary disease): Plan: cont home inhalers oddly she reports she does NOT have COPD and was "tested by a dry pan charger and said everything was fine" she has no prior h/o smoking (9) Chronic systolic CHF (congestive heart failure): Plan: previous EF <30%?? then improved to 45% per . now 50-55% on echo at [facility]. Creatinine worse with diuresis - holding further lasix. cont coreg. ultimately resume Entresto. (10) ICD (implantable cardioverter-defibrillator) in place: Plan DVT proph - lovenox Nausea - resolved Anemia - check Fe studies, B12, folate constipation - resolved s/p dulcolax suppos today updated at bedside PT, OT blu to ensure safe for d/c home Admission and Anticipated Discharge Date Admission Date: October 01, 2022 Subjective patient feels "much better" appetite, energy, breathing, right leg, etc - everything feels better denies dyspnea when she got up today to walk to bathroom tele overnight - pacing did have low-grade temp again last pm - but didn't notice it at bedside - he was able to gain access to their medical portal account with their doctors back home in [place] her creatinine about 1 month ago was 1.4 highest Cr in the last year was 1.9, most times 1.7 or less Review of Systems Review of Systems: gen - feels good, good appetite today, no fever/chills today cv - no chest pain, no orthopnea pulm - no cough or congestion GI - no further nausea Physical Exam Physical Exam: gen - obese, NAD, looks good today neck - no JVD mouth - MMM heart - RRR, s1 s2, no murmur lungs - faint end-exp wheezes resolved, no rales, airation modestly better abd - soft NT ND BS+ ext - <1+ edema b/l, pulses 2+ b/l skin - cellulitis of right barrett with large irregularly shaped ulceration (shallow) on the right barrett -- erythema is improved today; redness now a light pink color, not as warm to touch; minimal weeping serous fluid from the ulcer; scattered abrasions on both shins psych - a/o x 3 Results & Data Results & Data ([facility]) Vital Signs (Past 12 Hours) Vital Signs Temp Pulse Pulse Resp BP Pulse Ox O2 Del Method 10/03/22 11:00 Room Air 10/03/22 11:46 36.7 C 56 L 18 145/67 H 94 Room Air 10/03/22 07:00 60 10/03/22 07:00 36 C L 64 20 111/67 96 Nasal Cannula 10/03/22 02:48 36.5 C 65 18 118/68 90 Nasal Cannula O2 Flow Rate 10/03/22 11:00 10/03/22 11:46 10/03/22 07:00 10/03/22 07:00 2 10/03/22 02:48 1 Laboratory Results Laboratory Results - last 24 hr 10/02/22 10/02/22 10/02/22 04:04 16:57 18:36 WBC RBC Hgb Hct MCV MCH MCHC RDW Std Deviation RDW Coeff of Michael Plt Count MPV Immature Gran % (Auto) Neut % (Auto) Lymph % (Auto) [place] % (Auto) Eos % (Auto) Baso % (Auto) Neut # (Auto) Lymph # (Auto) [place] # (Auto) Eos # (Auto) Baso # (Auto) Immature Gran # (Auto) Sodium Potassium Chloride Carbon Dioxide Anion Gap BUN Creatinine Est Cr Clr Drug Dosing Est GFR ( Amer) Est GFR (Non-Af Amer) BUN/Creatinine Ratio Glucose POC Glucose 127 H Calcium Adenovirus (PCR) Not Detected B. pertussis DNA (PCR) Not Detected B.parapertussis DNA PCR Not Detected C. pneumoniae DNA (PCR) Not Detected Coronavirus OC43 (PCR) Not Detected Coronavirus HKU1 (PCR) Not Detected Coronavirus 229E (PCR) Not Detected SARS-CoV-2 (PCR) Not Detected Coronavirus NL63 (PCR) Not Detected Hepatitis C Ab (EIA) NON-REACTIVE Hep C Ab Signal/Cutoff 0.04 Human Metapneumovir PCR Not Detected Influenza Type A (PCR) Not Detected Influenza Type B (PCR) Not Detected M. pneumoniae (PCR) Not Detected Parainfluenza 1 (PCR) Not Detected Parainfluenza 2 (PCR) Not Detected Parainfluenza 3 (PCR) Not Detected Parainfluenza 4 (PCR) Not Detected RSV (PCR) Not Detected Entero/Rhino (PCR) Not Detected 10/02/22 10/03/22 10/03/22 20:12 07:41 08:09 WBC 5.07 RBC 3.61 L Hgb 10.5 L Hct 33.9 L MCV 93.9 MCH 29.1 MCHC 31.0 L RDW Std Deviation 52.3 H RDW Coeff of Michael 15.0 H Plt Count 112 L MPV 11.5 Immature Gran % (Auto) 0.2 Neut % (Auto) 56.3 Lymph % (Auto) 19.3 [place] % (Auto) 19.9 Eos % (Auto) 3.7 Baso % (Auto) 0.6 Neut # (Auto) 2.85 Lymph # (Auto) 0.98 L [place] # (Auto) 1.01 H Eos # (Auto) 0.19 Baso # (Auto) 0.03 Immature Gran # (Auto) 0.01 Sodium Potassium Chloride Carbon Dioxide Anion Gap BUN Creatinine Est Cr Clr Drug Dosing Est GFR ( Amer) Est GFR (Non-Af Amer) BUN/Creatinine Ratio Glucose POC Glucose 130 H 132 H Calcium Adenovirus (PCR) B. pertussis DNA (PCR) B.parapertussis DNA PCR C. pneumoniae DNA (PCR) Coronavirus OC43 (PCR) Coronavirus HKU1 (PCR) Coronavirus 229E (PCR) SARS-CoV-2 (PCR) Coronavirus NL63 (PCR) Hepatitis C Ab (EIA) Hep C Ab Signal/Cutoff Human Metapneumovir PCR Influenza Type A (PCR) Influenza Type B (PCR) M. pneumoniae (PCR) Parainfluenza 1 (PCR) Parainfluenza 2 (PCR) Parainfluenza 3 (PCR) Parainfluenza 4 (PCR) RSV (PCR) Entero/Rhino (PCR) 10/03/22 10/03/22 08:09 12:06 WBC RBC Hgb Hct MCV MCH MCHC RDW Std Deviation RDW Coeff of Michael Plt Count MPV Immature Gran % (Auto) Neut % (Auto) Lymph % (Auto) [place] % (Auto) Eos % (Auto) Baso % (Auto) Neut # (Auto) Lymph # (Auto) [place] # (Auto) Eos # (Auto) Baso # (Auto) Immature Gran # (Auto) Sodium 138 Potassium 4.3 Chloride 104 Carbon Dioxide 29 Anion Gap 5 BUN 38 H Creatinine 2.00 H Est Cr Clr Drug Dosing 31.5 Est GFR ( Amer) 27.6 Est GFR (Non-Af Amer) 23.8 BUN/Creatinine Ratio 19.0 Glucose 135 H POC Glucose 211 H Calcium 8.4 L Adenovirus (PCR) B. pertussis DNA (PCR) B.parapertussis DNA PCR C. pneumoniae DNA (PCR) Coronavirus OC43 (PCR) Coronavirus HKU1 (PCR) Coronavirus 229E (PCR) SARS-CoV-2 (PCR) Coronavirus NL63 (PCR) Hepatitis C Ab (EIA) Hep C Ab Signal/Cutoff Human Metapneumovir PCR Influenza Type A (PCR) Influenza Type B (PCR) M. pneumoniae (PCR) Parainfluenza 1 (PCR) Parainfluenza 2 (PCR) Parainfluenza 3 (PCR) Parainfluenza 4 (PCR) RSV (PCR) Entero/Rhino (PCR) PG Care Time/CCT Total # of Minutes Spent Total Time Spent with Patient: Total time spent is greater than 50% in coordination of care (as documented) at patient's floor/unit and/or counseling patient: Coding Level of Care Code 53382 SUB INP/OBS CARE 3/50MIN Diagnoses GELA (acute kidney injury) N17.9 CAD (coronary artery disease) I25.10 Diabetes E11.9 Hypertension I10 Hyperlipidemia E78.5 Cellulitis and abscess of right leg L03.115; L02.415 Wheezing R06.2 COPD (chronic obstructive pulmonary disease) J44.9 Chronic systolic CHF (congestive heart failure) I50.22 ICD (implantable cardioverter-defibrillator) in place Z95.810
--- NOTE | 2022-10-03 15:00 | CT Scan Report ---
ABDOMEN AND PELVIS CT WITHOUT CONTRAST CT DOSE: 1692.36 mGy.cm HISTORY: Acute renal failure acute kidney injury; stones? other pathology? TECHNIQUE: Multiaxial CT images of the abdomen and pelvis were performed without contrast. A dose lo wering technique was utilized adhering to the principles of ALARA. COMPARISON STUDY: KUB October 02, 2022 FINDINGS: Cardiomegaly with left subclavian pacer/AICD. Prior median sternotomy. Right hemidiaphragma tic elevation with small right and yropn-rp-ncngmgts left pleural effusions again noted. Mild bibasil ar atelectasis. No pneumatosis or pneumoperitoneum. The unenhanced spleen, moderately atrophic pancreas and adrenal glands are unremarkable. Cholelithias is without CT evidence of acute cholecystitis. Peripherally calcified likely benign 1.7 cm structure of the right hepatic lobe is noted within the vinayak hepatis. The liver is otherwise unremarkable. Mild nonspecific bilateral perinephric stranding. 2.3 cm exophytic cyst of the inferior pole left kid melly. There are a few subcentimeter calcifications of the left kidney which are likely vascular in feliberto gin. No ureteral calculi or hydronephrosis. Unremarkable appearance of the uterus and adnexa. Atheros clerosis of the aorta and branch vessels without aneurysm. No lymphadenopathy identified. Small hiatal hernia. No bowel obstruction or bowel wall thickening. Colonic diverticulosis with mild to moderate colonic fecal retention. Normal appendix. Small mid ventral abdominal wall hernia with di astases of 2.8 cm contains mesenteric fat and nonobstructed portion of the transverse colon. Another small supraumbilical hernia contains a portion of the nonobstructed large bowel. No acute fracture id entified. Left hip total joint arthroplasty. IMPRESSION: 1. No ureteral calculi or hydronephrosis. 2. There are a few subcentimeter calcifications of the left kidney which are favored to be vascular i n origin. 3. Cholelithiasis. 4. Small right with small to moderate left pleural effusions. 5. Additional findings as above. ACT 112: Negative or not required by law. The above report was generated using voice recognition software. It may contain grammatical, syntax o r spelling errors. Electronically signed by: Sean Olivier M.D. 10/03/2022 2:58 PM
[2022-10-03] MEDS: ENOXAPARIN INJ 40 MG/0.4 ML SYR SQ SCH (16:44)
[2022-10-04 07:48] LABS: BUN Creatinine Ratio 21.5 (10-20); Calcium 8.3 mg/dl (8.5-10.1); Creatinine Clr Calc Pharmacy 34.8 ml/min; Est GFR (African American) 31.1 ml/min; Est GFR (Non-African American) 26.9 ml/min; Potassium 4.3 mmol/L (3.5-5.1)
[2022-10-04 07:54] LABS: Ferritin 75.8 ng/ml (8-388)
[2022-10-04] MEDS: FLUTICASONE/VILANTEROL 100/25MCG 14 PUFFS/INHALER INH SCH (08:22)
[2022-10-04] MEDS: ASPIRIN 81 MG ECTAB PO SCH (08:22)
[2022-10-04] MEDS: FLUTICASONE PROPIONATE NA SPR 16 GM BTL SCH (08:22)
[2022-10-04] MEDS: carvediloL 3.125 MG TAB PO SCH (08:22)
[2022-10-04] MEDS: PANTOprazole 40 MG TAB PO SCH (08:22)
[2022-10-04] MEDS: LANTUS PER UNIT CHARGE SQ SCH (08:27)
[2022-10-04] MEDS: INSULIN ASPART PER UNIT SC SCH ×3 (08:28→17:36)
[2022-10-04] MEDS: PREGABALIN 50 MG CAP PO SCH (08:29)
[2022-10-04] MEDS ORDERED: CYANOCOBALAMIN (B-12) 500 MCG TABLET PO SCH (09:00)
[2022-10-04] MEDS: DAPTOmycin 350 MG in SYRINGE 0 ML IV SCH (14:05)
--- NOTE | 2022-10-04 17:14 | Discharge Summary ---
Date of Service October 04, 2022 Admission HPI Per Admitting Provider Diane Joyner is a 77-year-old female with a past medical history significant for diabetes, CAD s/p triple bypass 1.5 years ago, hypertension, hyperlipidemia and COPD/asthma who is presenting today with complaints of shortness of breath this morning. She is from [place] and has been in the area visiting family and staying in a hotel. She noticed 2 days ago she was becoming short of breath with exertion and this morning felt significantly short of breath with some swelling in her face. She has had similar reactions to hotel limits before, therefore thought this was an allergic reaction to 25 mg Benadryl before presenting to an urgent care, where they administered a DuoNeb and called an ambulance for her to be escorted to the emergency room as they were concerned that she was quite dyspneic at that time. She received an additional DuoNeb in route. She is not noticing any shortness of breath at rest, chest pain, palpitations, nausea, vomiting, abdominal pain. She has some swelling in her legs, she is unable to describe if this is worse than usual. She does not yet feel her breathing is worse when lying flat. On presentation she is moderately hypertensive 173/96, otherwise vital signs within normal limits, she is not hypoxic, tachycardic, tachypneic, or febrile. Labs significant for BNP of 892, troponin 25.3, creatinine 1.48. No baseline labs for comparison. UA is contaminated with epithelial cells, but with trace leukoesterase and 1030 WBCs. COVID/flu/RSV negative. CXR shows cardiomegaly with AICD, prominence of pulmonary vasculature and small pleural effusions. Discharge Exam gen - obese, NAD, looks good today neck - no JVD mouth - MMM heart - RRR, s1 s2, no murmur lungs - faint end-exp wheezes resolved, no rales, airation modestly better abd - soft NT ND BS+ ext - <1+ edema b/l, pulses 2+ b/l skin - cellulitis of right barrett with large irregularly shaped ulceration (shallow) on the right barrett -- erythema is improved today; redness now a light pink color, not as warm to touch; minimal weeping serous fluid from the ulcer; scattered abrasions on both shins psych - a/o x 3 Discharge Data Allergies Allergy/AdvReac Type Severity Reaction Status Date / Time ciprofloxacin [From Cipro] Allergy Unknown Verified 10/01/22 16:43 dextrose 5 % in water Allergy Unknown Verified 10/01/22 16:43 [From Zyvox] doxycycline Allergy Unknown Verified 10/01/22 16:43 linezolid [From Zyvox] Allergy Unknown Verified 10/01/22 16:43 polymyxin B Allergy Unknown Verified 10/01/22 16:43 sulfamethoxazole Allergy Unknown Verified 10/01/22 16:43 [From Bactrim] trimethoprim [From Bactrim] Allergy Unknown Verified 10/01/22 16:43 Consultations 10/01/22 15:03 ED Decision to Admit Stat 10/04/22 16:36 Burn CD for patient Routine Ordered Studies 10/03/22 13:57 CT abd pelvis wo con Routine Hospital Course (1) GELA (acute kidney injury): Pt' was able to log in to their PCP's portal back home in [place]. Pt's creatinine was 1.4 in early August 2022. She has been as high as 1.9 in the past, but mostly 1.7 or less. Presented with Cr 1.48. Cr yesterday and today remain at 2. She is nonoliguric. Plan to perform CT a/p without contrast to r/o obstruction, stones, etc. (2) CAD (coronary artery disease): History of triple bypass surgery 1.5 years ago w/ [facility] and AICD placement after that (due to Vtach event??). No ischemic symptoms. Mild trop elevation likely myocardial demand ischemia. Cont BB (coreg; stopped metoprolol). Cont statin. (3) Diabetes: Hba1c 7.6% cont lantus cont novolog (4) Hypertension: hold diuretics and Entresto due to #1 Cont coreg. if Cr is better tomorrow then consider adding back Entresto. (5) Hyperlipidemia: Continue statin. (6) Cellulitis and abscess of right leg: IMPROVED cont rocephin + daptomycin 1 more day and if ongoing improvement change to PO abx tomorrow wound care consult for the RLE barrett ulcer appreciated. (7) Wheezinnd to pulm edema vs respiratory illness. either way it is improved. most recent cxr without infiltrates. BioFire negative. o2 sats wnl and dyspnea improved. monitor. (8) COPD (chronic obstructive pulmonary disease): cont home inhalers oddly she reports she does NOT have COPD and was "tested by a final inspector shuttle and said everything was fine" she has no prior h/o smoking (9) Chronic systolic CHF (congestive heart failure): previous EF <30%?? then improved to 45% per . now 50-55% on echo at [facility]. Creatinine worse with diuresis - holding further lasix. cont coreg. ultimately resume Entresto. (10) ICD (implantable cardioverter-defibrillator) in place: Plan DVT proph - lovenox Nausea - resolved Anemia - check Fe studies, B12, folate constipation - resolved s/p dulcolax suppos today updated at bedside PT, OT blu to ensure safe for d/c home Discharge Plan Discharge Items Patient Disposition: Home - Self-Care Reason For Visit: Shortness of breath Discharge Diagnosis: 1. shortness of breath - either due to a respiratory illness vs mild congestive heart failure - resolved. 2. chronic pleural effusions, left greater than right. 3. right leg cellulitis - resolving. 4. right leg ulceration. 5. numerous skin abrasions of both legs. 6. acute kidney injury - resolving. Discharge creatinine 1.8. Peak creatinine level 2. 7. vitamin B12 deficiency. 8. iron deficiency. 9. history of congestive heart failure - ejection fraction here 50-55%. 10. ICD device. 11. constipation. 12. gallstones. 13. 2.3cm cyst of left kidney - appears benign, but follow-up recommended. Activity: As commented below Activity Comment: gradually increase your activities over the next 3-5 days Non-emergency contact: Primary Care Provider Call non-emergency contact if: you have any medication questions, your symptoms worsen, you have a fever, your wound has increased redness, your wound has increased drainage and your wound pain has increased Follow-up/Referrals: Kenisha Stubbs MD [Primary Care Provider] - (see your family doctor this coming Saturday/Saturday for recheck of right leg, etc.) Diet: Carb Consistent or DM2 and Heart Healthy Fluids: 1800ml (7 cups) Addtl Attending Provider Instructions: Mrs Joyner, You were hospitalized for shortness of breath and feeling poorly starting the AM of 09/30/22. You initially were concerned that you had had a reaction to the pillows at the local hotel in which you were staying. You reported flu-like symptoms leading up to your hospitalization. Upon admission here you had fever. Initially there was concern that perhaps you were suffering from a congestive heart failure flare-up (fluid build-up in the lungs and other locations). However, the fever was more suggestive that you were fighting an infection. As your admission went on it became more clear that you had cellulitis (skin infection) of the right leg. The ulcer that is on the barrett was the likely cause of the cellulitis. This improved nicely with 3 days of IV antibiotics. Blood cultures remained negative. Urine culture was negative. Follow-up chest x-rays did not show pneumonia. Your breathing improved over the course of your stay. It was never entirely clear if you indeed had a flare-up of congestive heart failure or if you had suffered from a respiratory illness. A viral respiratory panel was negative for COVID, influenza, RSV, and other viruses, however. If you did have fluid build- up from heart failure it resolved very quickly with 2 doses of IV diuretics. In addition your creatinine (kidney number) isabel from 1.4 to 2 during the stay. It improved to 1.8 at time of discharge. Multiple factors likely caused this including infection/illness, use of diuretics (water pills), and potentially other reasons. A CT scan of your abdomen did not show any kidney stones or problems with the bladder that would have caused the creatinine to rise. Recommendations - 1. right leg cellulitis - take cephalexin 500mg twice daily x 7 days, first dose TONIGHT on 10/04/22. 2. take probiotics once daily starting today. These may help prevent diarrhea from your antibiotics. 3. HOLD your Entresto (sacubitril-valsartan) until you see your family doctor next week. 4. please take ooig-jph-fpkchtx vitamin B12 1000mcg once daily for 6 months. Your vitamin B12 level was low at 220. 5. please follow-up with your family doctor about your low iron levels as you may benefit from IV iron in lizzy of oral iron tablets. 6. continue your 2 insulins as previous. 7. during your drive home to [place] please stop and stretch/walk about every 60-90 minutes to prevent DVT blood clots of the legs. 8. right leg ulcer - place a piece of Aquacel Ag on the ulcer, cover with optifoam. Change every 48 hours and as needed. 9. constipation - rxad-quc-ewlwhkv miralax once daily as needed. 10. you had a small cyst on your left kidney. This was seen on your CT scan. Please review this with your family doctor. 11. we incidentally found gallstones on your CT scan. There is nothing to do for this at this time. The gall bladder otherwise did not appear sick/ill. Follow-up - see your family doctor early next week for recheck of your right le g, your breathing, etc. I would also like your family doctor to repeat your creatinine at that time. Return to any hospital if - * you develop recurrent fevers over 100 degrees * you have worsening shortness of breath * you have chest pains * you have concerns that your right leg cellulitis is worsening * you have worsening swelling or pain of your legs * you develop severe diarrhea * any other concerns It was our pleasure to care for you at [facility]! Safe travels home and please continue to feel better, Dr Banerjee Pending Studies at Discharge: Yes Studies:: blood cultures but thus far negative (no bloodstream infection) Stand-Alone Forms: My [facility], Smoking Cessation Medications and DC Order Prescriptions: New cephalexin 500 mg capsule 500 mg PO BID 7 Days Qty: 14 0RF Rx Instructions: first dose PM of 10/04/22 Saccharomyces boulardii 250 mg capsule 250 mg PO DAILY 7 Days Qty: 7 0RF cyanocobalamin (vitamin B-12) 1,000 mcg capsule 1,000 mcg PO DAILY Qty: 90 1RF Rx Instructions: purchase thlg-mso-jlpidqu insulin lispro [Humalog KwikPen Insulin] 100 unit/mL insulin pen 1 sliding scale dose subcut USEASDIRECTD Qty: 15 0RF Rx Instructions: use sliding scale as directed with each meal. Continued aspirin [Aspir-Low] 81 mg Tablet,Delayed Release (Dr/Ec) 81 mg PO DAILY carvedilol 3.125 mg tablet 3.125 mg PO BID pantoprazole 40 mg tablet,delayed release (DR/EC) 40 mg PO DAILY fluticasone propion-salmeterol [Advair Diskus] 500-50 mcg/dose Blister With Device 1 inh INHALATION BID fluticasone propionate 50 mcg/actuation spray,suspension 2 spray INTRANASAL BID rosuvastatin 40 mg tablet 40 mg PO DAILY pregabalin 50 mg capsule 50 mg PO BID insulin glargine [Lantus Solostar U-100 Insulin] 100 unit/mL (3 mL) insulin pen 42 unit SUBCUT QAM Changed albuterol sulfate 90 mcg/actuation HFA aerosol inhaler 2 puff INHALATION Q4 PRN (Reason: cough/wheeze) Qty: 1 0RF Discontinued insulin lispro [Humalog KwikPen Insulin] 100 unit/mL insulin pen 0 unit SUBCUT TIDM Rx Instructions: per sliding scale Entresto 24-26 mg tablet 0.25 tab PO BID metoprolol succinate 25 mg Tablet Extended Release 24 Hr 25 mg PO DAILY Rx Instructions: Stated by patient Discharge Orders: Discharge Order (Routine); Ordered 10/04/22 Ordered By: Panchito De Paz/Other Patient Handouts: Managing Type 2 Diabetes, Special Foot Care for Diabetes Admission Data Admit Date/Time: 10/01/22 15:32 Attending Provider: Panchito Banerjee Admit Provider: Zeb Garcia Primary Care Provider: Kenisha Stubbs Other Providers: Zeb Garcia Coding Diagnoses GELA (acute kidney injury) N17.9 CAD (coronary artery disease) I25.10 Diabetes E11.9 Hypertension I10 Hyperlipidemia E78.5 Cellulitis and abscess of right leg L03.115; L02.415 Wheezing R06.2 COPD (chronic obstructive pulmonary disease) J44.9 Chronic systolic CHF (congestive heart failure) I50.22 ICD (implantable cardioverter-defibrillator) in place Z95.810
[2022-10-04] MEDS: ENOXAPARIN INJ 40 MG/0.4 ML SYR SQ SCH (17:36)
== END 2022-10-04 18:36 | disposition home or self-care (01) ==
LOC: ED 12:33 → INTOOBSV 15:32 → 2N 15:32 → SUATTDRO 15:32 → 2N 16:17